=== PATIENT | female | born 1965 | race Caucasian/White ===

== ENCOUNTER 2016-11-22 11:52 | Emergency (ER) | payer SELFPAY | END 2016-11-22 17:00 | disposition home or self-care (01) | LOC: ER 11:52 | DX: T81.4XXA Infection following a procedure, initial encounter (principal); N61.0 Mastitis without abscess; G43.909 Migraine, unspecified, not intractable, without status migrainosus; Z90.710 Acquired absence of both cervix and uterus; Z79.899 Other long term (current) drug therapy; Z88.0 Allergy status to penicillin; Z88.2 Allergy status to sulfonamides | CPT/HCPCS: 36415; 96365; J3370 ==